=== PATIENT | female | born 1995 | race Caucasian/White ===

== ENCOUNTER 2023-08-07 15:33 | Outpatient (CLI) | payer OTHER, SELFPAY | END 2023-08-07 15:34 | disposition home or self-care (01) | LOC: ANHLAB 15:39 | PROVIDERS: Visit Provider Obstetrics & Gynecology | DX: O20.0 Threatened abortion (principal) | CPT/HCPCS: 36415; 84702 ==

== ENCOUNTER 2023-08-10 12:49 | Outpatient (CLI) | payer OTHER, SELFPAY | END 2023-08-10 12:50 | disposition home or self-care (01) | PROVIDERS: Visit Provider Obstetrics & Gynecology | DX: O20.0 Threatened abortion (principal) | CPT/HCPCS: 36415; 84702 ==

== ENCOUNTER 2023-08-24 01:36 | Day surgery (SDC) | payer OTHER, SELFPAY ==
[2023-08-22 09:20] VITALS: BMI 29.7
--- NOTE | 2023-08-22 09:24 | PC.NURSE ---
Addendum entered by Charla Badillo RN 08/22/23 09:25: PT MAY TAKE AM DOSE OF BUPRENORPHINE WITH SMALL SIP OF WATER. Original Note: Report to the Outpatient Waiting Room, entrance under the green pavilion located off [facility], at time 0830 on date 08/24/23. Planned Procedure Time: 1030. Time changes happen often and if your time is changed the preop area will call you the afternoon before. - You and your visitor will be asked to self-screen and do not enter if you have any COVID symptoms. - A mask is optional within the hospital at this time. Patients may have clear liquids (water, carbonated beverages, clear teas, apple juice) until 3 hours prior to surgery with a maximum of 20 ounces. - No food from midnight until time of surgery Take the following medications with a SIP of water the morning of surgery: DO NOT STOP ANY OF YOUR OTHER PRESCRIPTION MEDICATIONS PRIOR TO SURGERY ?EXCEPT THE FOLLOWING Medications to discontinue per physician Date to take last dose Please no make-up, nail tamazight, hairspray, perfume, deodorant, or body powder the day of surgery. No jewelry (including any body piercings) or valuables the day of surgery, leave them at home. Please take a shower or bath the night before, or the morning of, surgery with an antibacterial soap. Wear comfortable, loose fitting clothing. - Jewelry must be removed prior to entering the operating room. Rings and piercings that are not removed may be cut off. - The hospital will not accept responsibility for valuables. - Please leave all valuables, including medications, at home the day of surgery. If you are going home after surgery, a licensed local company hazmat driver must drive you home. - NO public transportation without another adult if you receive anesthesia. - We recommend that an adult stay with you for 24 hours following discharge. - We also recommend that you do not drive, make important decision, drink alcoholic beverages, or take any drugs that were not prescribed by your health care provider for at least 24 hours after your discharge time. Follow any additional instructions given to you from your surgeon. If you or anyone in your household have experienced Covid symptoms in the past week, please notify your surgeon or the nurse liaison at the phone number below for possible testing. Telephone instructions given to JEB ASHFORD and asked if any additional questions and then verbalized understanding. Patient advised to call surgeon office or pre surgery nurse liaison [phone] if any additional questions.
[2023-08-24 09:00] VITALS: BP 113/55; PULSE 72; RESP 18; TEMP 36.4; O2SAT 100
[2023-08-24] MEDS: ACETAMINOPHEN 500 MG TABLET 1000 MG PO (09:19)
[2023-08-24] MEDS: LACTATED RINGERS 1,000 ML 30 ML IV CONT (09:30)
--- NOTE | 2023-08-24 09:43 | PM.IMHP ---
H&P: HPI History of Present Illness Date/Time: 08/24/23 09:43 Chief Complaint: missed miscarriage Narrative: Patient is a 28 year old who presents for suction D&C, indicated for missed miscarriage. She was seen in the office last week and US demonstrated GS, YS with small pole but no FHT, which was suspicious for early loss. Repeat US this week confirmed missed miscarriage. hCG has been slowly downtrending. She denies heavy bleeding, cramping, fevers or chills. R/b/a of expectant vs medical vs surgical management was discussed with the patient and she elects to proceed with suction D&C. Review of Systems Review of Systems: All systems reviewed & are unremarkable except as noted in HPI and below PMFSH Social History Social History Smoking status: Never smoker Alcohol intake: never Substance use: current Substance use type: marijuana Other substance usage details: CURRENT MARIJUANA, FORMER OTHER SUBSTANCES Living arrangements: with family Spiritual care concerns: No Meds Home Medications and Allergies Home Medications Medication Instructions Recorded Confirmed Type buprenorphine HCl 8 mg sublingual 8 mg sublingual TID 08/22/23 08/24/23 History tablet Allergies Allergy/AdvReac Type Severity Reaction Status Date / Time Sulfa (Sulfonamide Allergy Hives Verified 08/24/23 09:38 Antibiotics) Vital Signs Vital Signs - 24 hr 08/24/23 09:00 Temperature 97.6 F Pulse Rate 72 Respiratory Rate 18 Blood Pressure 113/55 L Pulse Oximetry 100 Oxygen Delivery Room Air Exam Const: General: comfortable and no acute distress HENMT: Mouth: Yes moist mucous membranes Eyes: General: appearance normal, both eyes and all related structures Neck: Neck: supple Resp: Effort & Inspection: normal respiratory effort Cardio: Rate: regular rate Skin: General skin exam: normal color Extrem: General: normal to inspection Psych: Mental Status: mental status grossly normal Assessment and Plan Assessment and plan (1) Missed : Code(s): O02.1 - Missed Status: Acute Assessment and Plan: confirmed with US and downtrending hCG; r/b/a of management options discussed and patient would like to proceed with suction D&C. r/b of procedure discussed today. Will proceed with suction D&C.
--- NOTE | 2023-08-24 10:27 | WPDANESEPPF ---
Anes - Initial Pre Proc Eval Procedure: Operation Date: 08/24/23 10:30 Proposed Procedures p Suction Dilation and Curettage - Pollo Shook MD Date/Time: 08/24/23 10:27 Surgeon: Pollo Shook MD Pre Op Diagnosis: Missed Ab Patient Data Age: 28 Gender: F Height: 1.55 m Weight: 71.25 kg Last Vital Signs Temp 97.6 F 08/24/23 09:00 Pulse 72 08/24/23 09:00 Resp 18 08/24/23 09:00 BP 113/55 L 08/24/23 09:00 Pulse Ox 100 08/24/23 09:00 O2 Del Method Room Air 08/24/23 09:00 Allergies Allergy/AdvReac Type Severity Reaction Status Date / Time Sulfa (Sulfonamide Allergy Hives Verified 08/24/23 09:38 Antibiotics) Home Medications Medication Instructions Recorded Confirmed Type buprenorphine HCl 8 mg sublingual 8 mg sublingual TID 08/22/23 08/24/23 History tablet Laboratory Tests 08/24/23 09:11 Blood Type O Positive Antibody Screen Pending Doses of RhIg Required 0 Patient hx anesthesia problems: none Family hx anesthesia problems: none Results Review: All pre-operative results and documents have been reviewed as part of the pre-operative evaluation. [facility] Social History Social History Smoking status: Never smoker Alcohol intake: never Substance use: current Substance use type: marijuana Other substance usage details: CURRENT MARIJUANA, FORMER OTHER SUBSTANCES Living arrangements: with family Spiritual care concerns: No Anes - Eval Final PreProcedure Day of Procedure 08/24/23 10:27 Patient weight: overweight Heart: regular rate and rhythm Lungs: clear to auscultation Airway: Mallampati scale class III Neurological: alert and oriented Last oral intake: >/= 8 hours ASA classification: II Emergent: no Anesthetic plan: proceed Anesthesia type and monitoring: general GIVS and standard monitoring Results Review: All pre-operative results and documents have been reviewed as part of the pre-operative evaluation. Informed Consent: The patient's anesthetic plan and its attendant risks and benefits were discussed with the patient/family/POA. Questions were solicited and answers provided to the satisfaction of the patient/family/POA.
[2023-08-24] MEDS: KETOROLAC 30 MG/ML VIAL (*BKC) IV PUSH (10:34)
--- NOTE | 2023-08-24 10:49 | WPDHPUPDATE1 ---
History and Physical Update Update Date/Time: 08/24/23 10:49 History and Physical has been reviewed, including an updated exam of the patient. There are NO changes in the patient's condition. Risks, benefits, and alternatives have been discussed and questions answered. Patient agrees to proceed with procedure.
--- NOTE | 2023-08-24 11:01 | W.PM.PROC2 ---
Procedure Note - Detailed Date of Procedure 08/24/23 Pre-op Diagnosis Missed Ab Post-op Diagnosis Same Procedure Performed suction D&C Surgeon Pollo Shook MD Anesthesia MAC Indications missed ab at 6 weeks Findings uterus appropriately sized for gestational age, small amount of clot at external os Description of Procedure The patient was then taken to the operating room with IVFs running. She was placed in the dorsal supine position where she received MAC anesthesia without any difficulty.?? The patient was placed in the dorsal lithotomy position using juliana stirrups. EUA revealed the above findings. She was then prepped and draped in a normal sterile fashion. A time-out procedure was performed and all members of the OR team agreed on the patient and plan. A bivalved speculum was then inserted into the patient's vagina.? The anterior lip of the cervix was grasped with a single tooth tenaculum. The cervical os was dilated using aparna dilators to accommodate a 7mm curette.? The suction curette was tested outside the patient and found to be working properly.? The curette was then advanced into the intrauterine cavity and circumferentially removed.? All products of conception were removed until little tissue was seen passing through the tubing.? A sharp curettage was then performed until a gritty texture was noted.? The specimen was sent to pathology.? The single tooth tenaculum was removed from the anterior lip of the cervix and the cervix was hemostatic.? The bivalve speculum was removed.? The patient tolerated the procedure well.? Sponge, lap, needle, and instrument counts were correct X3.? The patient was awakened from anesthesia and taken to the recovery room in stable condition. ? Estimated Blood Loss 20 Complications No immediate complications Condition Stable Disposition Same day
[2023-08-24 11:03] VITALS: BP 119/58; PULSE 71; RESP 14; O2SAT 98
[2023-08-24 11:30] VITALS: BP 99/71; PULSE 72
[2023-08-24 12:00] VITALS: BP 121/56; PULSE 57
== END 2023-08-24 12:10 | disposition home health service (06) ==
PROVIDERS: PCP Family Medicine; Visit Provider Obstetrics & Gynecology
PROC: (CPT 59820; principal; 2023-08-24 10:30)
DX: O02.1 Missed abortion (principal); F12.90 Cannabis use, unspecified, uncomplicated
CPT/HCPCS: 59820; 36415; 85461; 86850; 86900; 86901; 88305; A9270; J1885; J2250; J2405; J2704; J3010; J7120